=== PATIENT | male | born 1975 | race Two or more races ===

== ENCOUNTER 2017-01-22 05:32 | Emergency (ER) | payer OTHER ==
[2017-01-22] MEDS ORDERED: ASPIRIN CHEWTAB 81 MG TABLET ONE (06:32)
[2017-01-22 06:48] LABS: ABSOLUTE NEUTROPHIL COUNT 3.8 K/mm3 (1.8-7.7); BASO % 0.3 % (0.2-1.0); EOS # 0.1 (0.0-0.5); EOS % 1.3 % (0.9-2.9); HEMATOCRIT 45.8 % (32.0-52.0); HEMOGLOBIN 14.6 gm/l (14.0-18.0); IMM NEUT% 0.3 % (0-1); LYMPH # 1.9 (1.0-4.8); LYMPH % 30.5 % (15-45); MEAN CELL VOLUME 88.2 fl (80.0-94.0); MEAN CORPUSCULAR HEMOGLOBIN 28.1 pg (27.0-31.0); MEAN CORPUSCULAR HGB CONC 31.9 g/dl (33.0-37.0); MEAN PLATELET VOLUME 10.1 fl (7.4-10.4); MONO # 0.4 (0.0-0.8); MONO % 6.1 % (4-12); NEUT % 61.5 % (43-75); PLATELET COUNT 252 K/mm3 (130-400); RED CELL DISTRIBUTION WIDTH 13.2 % (11.5-14.5)
[2017-01-22 07:05] LABS: ALB/GLOB RATIO 1.3 (>1.0); ALBUMIN 4.3 gm/dL (3.5-5.7); CALCIUM 9.8 mg/dL (8.6-10.3); MAGNESIUM 1.9 mg/dL (1.9-2.7)
[2017-01-22 07:12] LABS: TROPONIN I < 0.01 ng/ml (0.0-0.06)
[2017-01-22 07:16] LABS: CKMB ISOENZYME 1.7 ng/ml (0.6-6.3)
--- NOTE | 2017-01-22 07:32 | RAD ---
Exam: Two-view chest COMPARISON: 09/27/2006 INDICATION: Left-sided chest pain for 8 hours. FINDINGS: PA and lateral views of the chest were obtained. Examination is slightly limited due to motion artifact. Cardiac silhouette is within normal limits and stable. Lungs are normally inflated. There is no pulmonary edema, focal airspace disease or pleural effusion. Bones of the chest wall within normal limits. IMPRESSION: No acute pulmonary process.
== END 2017-01-22 09:39 | disposition home or self-care (01) ==
LOC: ED 05:32
DX: R07.9 Chest pain, unspecified (principal)
CPT/HCPCS: 85025; 82553; 80053; 83735; 84484 ×2; 71020; 99284 ×2; A9270